=== PATIENT | male | born 1990 | race Two or more races ===

== ENCOUNTER 2017-04-05 14:02 | Day surgery (SDC) | payer OTHER ==
[2017-04-05] MEDS ORDERED: MIDAZOLAM 1 MG/ML 2 ML INJ ×2 (15:54→17:10)
[2017-04-05] MEDS ORDERED: LIDOCAINE 2% (SDV) 5 ML INJ (16:15)
[2017-04-05] MEDS ORDERED: PROPOFOL 20 ML ×2 (16:15→16:30)
[2017-04-05] MEDS ORDERED: DEXAMETHASONE 4 MG/ML 1 ML INJ (16:25)
[2017-04-05] MEDS ORDERED: ONDANSETRON 4 MG INJ (16:25)
[2017-04-05] MEDS ORDERED: FAMOTIDINE 20 MG INJ (16:25)
[2017-04-05] MEDS ORDERED: CEFAZOLIN 1 GM INJ (16:29)
[2017-04-05] MEDS ORDERED: FENTAnyl 50 MCG/ML VIAL IV ×2 (16:30)
[2017-04-05] MEDS ORDERED: DIPHENHYDRAMINE 50 MG INJ IV (16:30)
[2017-04-05] MEDS ORDERED: PROCHLORPERAZINE 10 MG INJ IV (16:30)
[2017-04-05] MEDS ORDERED: ONDANSETRON 4 MG INJ IV (16:30)
[2017-04-05] MEDS ORDERED: HYDROmorphONE (0.2 MG/ML) 10ML SYG IV ×2 (16:30)
[2017-04-05] MEDS: POLYMYXIN/BACITRACIN 1L IRRIG (16:48)
[2017-04-05] MEDS: FENTAnyl 50 MCG/ML VIAL IV ×4 (17:55→18:16)
[2017-04-05] MEDS: hydrALAzine 20 MG INJ IV ×3 (17:56→18:15)
[2017-04-05] MEDS: MEPERIDINE 25 MG INJ IV (18:18)
[2017-04-05] MEDS: LABETALOL HCL 20MG INJ IV ×3 (18:25→18:40)
[2017-04-05] MEDS: HYDROmorphONE (0.2 MG/ML) 10ML SYG IV ×3 (18:36→18:58)
[2017-04-05] MEDS: OXYCODONE/ACETAMINOPHEN (5/325) TAB PO (19:35)
== END 2017-04-05 19:41 | disposition home or self-care (01) ==
LOC: SDS 14:02
DX: S62.634A Displaced fracture of distal phalanx of right ring finger, initial encounter for closed fracture (principal); S66.114A Strain of flexor muscle, fascia and tendon of right ring finger at wrist and hand level, initial encounter; X58.XXXA Exposure to other specified factors, initial encounter; M20.011 Mallet finger of right finger(s); I10 Essential (primary) hypertension
CPT/HCPCS: 26433; 73140

== ENCOUNTER 2017-10-17 14:43 | Day surgery (SDC) | payer OTHER ==
[~2017-10-17 14:43] MED LIST: ROCURONIUM 50 MG INJ
[2017-10-17] MEDS ORDERED: CEFAZOLIN 2 GM/50 ML (PMX) 50 ML IVPB (15:00)
[2017-10-17] MEDS ORDERED: LACTATED RINGER'S 1,000 ML IV* (15:00)
[2017-10-17] MEDS ORDERED: EPHEDrine SULFATE 50 MG/5 ML SYG IV (17:00)
[2017-10-17] MEDS ORDERED: DIPHENHYDRAMINE 50 MG INJ IV (17:00)
[2017-10-17] MEDS ORDERED: HYDROmorphONE 1 MG/5 ML IV SYRINGE IV ×2 (17:00)
[2017-10-17] MEDS ORDERED: MEPERIDINE 25 MG INJ IV (17:00)
[2017-10-17] MEDS ORDERED: METOCLOPRAMIDE 10 MG INJ IV (17:00)
[2017-10-17] MEDS ORDERED: ONDANSETRON 4 MG INJ IV (17:00)
[2017-10-17] MEDS ORDERED: FENTAnyl 50 MCG/ML VIAL IV ×2 (17:00)
[2017-10-17] MEDS ORDERED: OXYCODONE/ACETAMINOPHEN (5/325) TAB PO (17:00)
[2017-10-17] MEDS ORDERED: PROPOFOL 20 ML (17:08)
[2017-10-17] MEDS ORDERED: CEFAZOLIN 1 GM INJ (17:08)
[2017-10-17] MEDS ORDERED: MIDAZOLAM 1 MG/ML 2 ML INJ (17:09)
[2017-10-17] MEDS: POLYMYXIN/BACITRACIN 1L IRRIG (17:24)
[2017-10-17] MEDS ORDERED: ACETAMINOPHEN 1000MG/100ML IV 100 ML (17:53)
[2017-10-17] MEDS ORDERED: KETOROLAC 30 MG INJ (17:54)
[2017-10-17] MEDS ORDERED: METOCLOPRAMIDE 10 MG INJ (17:54)
[2017-10-17] MEDS ORDERED: DEXAMETHASONE 4 MG/ML 1 ML INJ (17:54)
[2017-10-17] MEDS ORDERED: ONDANSETRON 4 MG INJ (17:54)
[2017-10-17] MEDS: HYDROmorphONE 1 MG/5 ML IV SYRINGE IV (18:24)
[2017-10-17] MEDS: LABETALOL HCL 20MG INJ IV (18:40)
[2017-10-17] MEDS: OXYCODONE/ACETAMINOPHEN (5/325) TAB PO (19:18)
[2017-10-17] MEDS ORDERED: hydrALAzine 20 MG INJ (19:49)
[2017-10-17] MEDS: FENTAnyl 50 MCG/ML VIAL IV (19:55)
[2017-10-17] MEDS ORDERED: hydrALAzine 20 MG INJ IV (20:00)
== END 2017-10-25 17:48 | disposition home or self-care (01) ==
LOC: SDS 14:43
DX: M67.833 Other specified disorders of tendon, right wrist (principal); M25.641 Stiffness of right hand, not elsewhere classified
CPT/HCPCS: 20680